=== PATIENT | female | born 1960 | race Caucasian/White ===

== ENCOUNTER 2019-12-12 21:26 | Emergency (ER) | payer BC, SELFPAY ==
--- NOTE | 2019-12-12 21:35 | CTR_ITS ---
PROCEDURE INFORMATION: Exam: CT Abdomen And Pelvis Without Contrast Exam date and time: 12/12/2019 10:23 PM Age: 59 years old Clinical indication: Abdominal pain; Flank; Right; Additional info: Flank pain TECHNIQUE: Imaging protocol: Computed tomography of the abdomen and pelvis without contrast. Total DLP: 1790.71 mGy-cm Radiation optimization: All CT scans at this facility use at least one of these dose optimization techniques: automated exposure control; mA and/or kV adjustment per patient size (includes targeted exams where dose is matched to clinical indication); or iterative reconstruction. COMPARISON: No relevant prior studies available. FINDINGS: Liver: Normal. No mass. Gallbladder and bile ducts: Cholelithiasis. Pancreas: Normal. No ductal dilation. Spleen: Normal. No splenomegaly. Adrenals: Left adrenal 17 mm low-density nodule likely reflecting a benign adenoma. Kidneys and ureters: Normal. No hydronephrosis. Stomach and bowel: Unremarkable. No obstruction. No mucosal thickening. Appendix: No evidence of appendicitis. Intraperitoneal space: Unremarkable. No free air. No significant fluid collection. Vasculature: Unremarkable. No abdominal aortic aneurysm. Lymph nodes: Unremarkable. No enlarged lymph nodes. Bladder: Unremarkable as visualized. Reproductive: Unremarkable as visualized. Bones/joints: Unremarkable. No acute fracture. Soft tissues: Unremarkable. CT/CT kidney stone [id number] IMPRESSION: 1. Negative for acute inflammatory process. 2. Cholelithiasis. 3. Left adrenal 17 mm low-density nodule likely reflecting a benign adenoma. COMMENT: Consistent with the [employer]'s Incidental Findings Committee white paper (J Am González Radiol 2017): For any incidental adrenal lesion greater than 1.0 cm but less than 4.0 cm classified in this report as benign or likely benign (including classification as an adenoma or myelolipoma), no follow-up imaging is recommended per consensus recommendations based on imaging criteria. Further lab evaluation could be pursued if warranted based on clinical findings. Radiation Dose CTDIVOL = (mGy): DLP = 1790.71 (mGy-cm)
[2019-12-12 21:42] VITALS: BP 126/64; PULSE 78; RESP 17; TEMP 37.1; O2SAT 100; BMI 37.5
--- NOTE | 2019-12-12 21:49 | W.ED.FEMALGU ---
HPI - Female Genitourinary General: Chief complaint: Urogenital-Female Stated complaint: BACK PAIN, R FLANK PAIN Time Seen by Provider: 12/12/19 21:40 History of Present Illness: HPI Narrative: Patient comes in today with complaints of right flank pain for the last 3 days. Patient states that she had turned and she felt a strain in her back but she is also been having some urinary difficulty with the pain. Patient appears well. Patient appears in moderate pain. Review of Systems General: Reports: 10 or more systems reviewed and unremarkable except in HPI and below : Reports: flank pain Musc: Reports: back pain PFSH ED PFSH: Statuses (acute, chronic, etc) shown below reflect problem list status as previously entered and may not be historically accurate Social History Smoking and tobacco status: current every day smoker Physical Exam Const: COMMON NORMALS: no apparent distress and oriented x3 GENERAL APPEARANCE: cooperative HENMT: COMMON NORMALS: normocephalic, external ears normal, EAC's normal, TM's normal bilaterally and external nose normal HEAD & SCALP: normal to inspection and normocephalic FACE & SINUS: normal facial exam NOSE: external nose normal GENERAL EAR: hearing not grossly impaired EXTERNAL EAR: Yes external ears normal EXTERNAL AUDITORY CANAL: EAC's normal TYMPANIC MEMBRANE: TM's normal bilaterally MOUTH: oral and palatal mucosa normal THROAT: posterior oropharynx normal Eye: COMMON NORMALS: PERRL and EOMs intact bilaterally PUPIL: Yes PERRL Neck/C-Spine: COMMON NORMALS: full ROM and no lymphadenopathy Lymph: LYMPHATIC: no lymphedema noted Chest: COMMONS NORMALS: inspection of chest normal and palpation of chest normal Resp: COMMON NORMALS: normal respiratory effort and clear to auscultation bilaterally AUSCULTATION: clear to auscultation bilaterally Cardio: COMMON NORMALS: regular rate and regular rhythm RATE: regular rate RHYTHM: regular rhythm GI: COMMON NORMALS: normal to inspection, nondistended, normoactive bowel sounds and non-tender : BLADDER/KIDNEY EXAM: Yes CVA tenderness Back/Pelvis: GENERAL BACK: Yes CVA tenderness CVA tenderness: right LUMBAR SPINE/LOWER BACK: Yes paraspinal muscle tenderness Lumbar paraspinal muscle tenderness: right Extremity: COMMON NORMALS: normal to inspection GENERAL: No edema Neuro: COMMON NORMALS: oriented x3, moves all extremities and no focal motor deficits Psych: COMMON NORMALS: mental status grossly normal and cooperative Skin: COMMON NORMALS: no rashes or lesions noted GENERAL SKIN EXAM: no rashes or lesions noted Course Vital Signs: Vital signs: Vital Signs Temperature 98.8 F 12/12/19 21:42 Pulse Rate 63 12/13/19 00:16 Respiratory Rate 16 12/13/19 00:16 Blood Pressure 113/66 12/13/19 00:16 Pulse Oximetry 98 12/13/19 00:16 MDM - Female MDM Narrative: Medical decision making narrative: Patient comes in today with right flank pain and urinary difficulty. On exam patient appears well. Patient had some right CVA tenderness. And some muscle tenderness to the right paraspinous muscles. Respirations were even lungs were clear to auscultation. Differential diagnosis include pyelonephritis, renal calculi, lumbar strain, facet arthropathy, intervertebral disc disease. Urine was positive for white blood cells and red blood cells. Remainder of the labs were nonsignificant. CT scan noted no renal stone or stranding suggesting pyelonephritis. Reviewed exam with patient with recommendations for further treatment and follow-up. Patient was medicated with antibiotics for infection and medication for pain. Patient did have improvement with pain. Lab Data: Labs: Lab Results 12/12/19 12/12/19 12/12/19 Range/Units 22:00 22:05 22:05 WBC 8.6 (4.0-10.0) 10^3/ uL RBC 4.97 (4.1-5.3) 10^6/u L Hgb 14.3 (11.5-15.3) g/dL Hct 45.5 (37.0-47.0) % MCV 91.5 (81-99) fL MCH 28.8 (28.0-34.0) pg MCHC 31.4 (30.0-36.0) g/dL RDW 14.1 (12.1-15.1) % Plt Count 147 (130-400) 10^3/c mm MPV 12.3 H (7.4-10.4) fL Neut % (Auto) 51.4 % Lymph % (Auto) 39.0 % [place] % (Auto) 7.1 % Eos % (Auto) 2.1 % Baso % (Auto) 0.2 % Neut # (Auto) 4.4 (1.8-7.7) 10^3/u L Lymph # (Auto) 3.4 (0.8-4.8) 10^3/u L [place] # (Auto) 0.6 (0.2-0.9) 10^3/u L Eos # (Auto) 0.2 (0.0-0.8) 10^3/u L Baso # (Auto) 0.0 (0.0-0.1) 10^3/u L Nucleated RBC % (a uto) 0 % Nucleated RBCs # 0.0 /100WBC Sodium 136 (136-145) mmol/L Potassium 4.1 (3.5-5.1) mmol/L Chloride 102 (98-107) mmol/L Carbon Dioxide 22 (22-29) mmol/L Anion Gap 16.1 (5-19) BUN 17 (8-23) mg/dL Creatinine 0.9 (0.5-0.9) mg/dL GFR Calculation 63.9 L (90-130) mL/min Glucose 158 H (74-106) mg/dL Calculated Osmolal ity 282 L (285-295) mOsm/k g Calcium 9.7 (8.5-10.5) mg/dL Urine Color Yellow (Yellow) Urine Appearance Cloudy (CLEAR) Urine pH 5 (5-7) Ur Specific Gravit y 1.020 (1.005-1.030) Urine Protein Trace (Negative) Urine Glucose (UA) Norm (Normal) Urine Ketones Negative (Negative) Urine Occult Blood 2+ H (Negative) Urine Nitrate Negative (Negative) Urine Bilirubin 1+ H (NEGATIVE) Urine Urobilinogen 1 H (Negative) mg/dL Ur Leukocyte Vandana ase 2+ H (Negative) Urine RBC 0-4 H (0-2) /hpf Urine WBC >100 H (0-5) /hpf Ur Squamous Epith Cells 5-10 H (0-5) Urine Bacteria 2+ H (NONE) Urine Mucus 1+ Discharge Plan Discharge Patient Disposition: Home, Self-Care Clinical Impression: Urinary tract infection Qualifiers: Urinary tract infection type: acute cystitis Hematuria presence: with hematuria Qualified Code(s): N30.01 - Acute cystitis with hematuria Low back pain Qualifiers: Chronicity: acute Back pain laterality: right Sciatica presence: without sciatica Qualified Code(s): M54.5 - Low back pain Condition: Stable Prescriptions: New cephalexin 500 mg capsule 500 mg PO BID 7 Days Qty: 14 RF: 0 naproxen 500 mg tablet 500 mg PO BID Qty: 20 RF: 0 tizanidine 4 mg tablet 4 mg PO Q8H PRN (Reason: muscle spasticity) Qty: 14 RF: 0 Discharge Orders: Discharge Order (Routine); Ordered 12/12/19 Ordered By: Genaro Velasquez Discharge Diet: Usual diet Discharge Activity: Resume usual activity Patient Instructions: Urinary Tract Infection in Women (ED) Activity Restrictions/Additional Instructions: Activity as tolerated Drink plenty of water Activity as tolerated Follow-up with primary care in three days Discharge Date/Time: 12/13/19 00:18 Coding Level of Care Code ED Folder Stitcher Operator for Michelle Garcia Exam Problem Focused
[2019-12-12 22:02] VITALS: BP 130/69; PULSE 81; RESP 16; O2SAT 98
[2019-12-12 22:13] LABS: Basophils % 0.2 %; Eosinophils # 0.2 10^3/uL (0.0-0.8); Eosinophils % 2.1 %; Hematocrit 45.5 % (37.0-47.0); Hemoglobin 14.3 g/dL (11.5-15.3); Lymphocytes # 3.4 10^3/uL (0.8-4.8); Mean Corpuscular HGB Conc 31.4 g/dL (30.0-36.0); Mean Corpuscular Hemoglobin 28.8 pg (28.0-34.0); Mean Corpuscular Volume 91.5 fL (81-99); Mean Platelet Volume 12.3 fL (7.4-10.4); Monocytes # 0.6 10^3/uL (0.2-0.9); Monocytes % 7.1 %; Neutrophils # 4.4 10^3/uL (1.8-7.7); Neutrophils % 51.4 %; Nucleated Red Blood Cells % 0 %; Platelet Count 147 10^3/cmm (130-400); Red Blood Count 4.97 10^6/uL (4.1-5.3); Red Cell Distribution Width 14.1 % (12.1-15.1); White Blood Count 8.6 10^3/uL (4.0-10.0)
[2019-12-12 22:16] VITALS: RESP 16; O2SAT 97
[2019-12-12] MEDS: morphine 4 mg/mL SDV 1 mL 2 MG IVP (22:16)
[2019-12-12] MEDS: ondansetron 2 mg/ML SDV 2 mL 4 MG IVP (22:17)
[2019-12-12] MEDS: ketorolac 30 mg/mL INJ 15 MG IVP (22:17)
[2019-12-12 22:24] VITALS: BP 116/66; PULSE 70; RESP 16; O2SAT 94
[2019-12-12 22:42] LABS: Anion Gap 16.1 (5-19); Blood Urea Nitrogen 17 mg/dL (8-23); Calcium 9.7 mg/dL (8.5-10.5); Carbon Dioxide 22 mmol/L (22-29); Chloride 102 mmol/L (98-107); Glomerular Filtration Rate 63.9 mL/min (90-130); Glucose 158 mg/dL (74-106); Osmolality Calculated 282 mOsm/kg (285-295); Potassium 4.1 mmol/L (3.5-5.1); Sodium 136 mmol/L (136-145)
[2019-12-12 22:49] LABS: Bilirubin Urine 1+ (NEGATIVE); Blood Urine 2+ (Negative); Leukocyte Esterase Urine 2+ (Negative); Protein Urine Trace (Negative); Urine Appearance Cloudy (CLEAR); Urine Color Yellow (Yellow); Urobilinogen Urine 1 mg/dL (Negative); pH Urine 5 (5-7)
[2019-12-12 22:50] LABS: Add Urine Culture? Yes; Bacteria Urine 2+; Glucose Urine UA Norm (Normal); Ketones Urine Negative (Negative); Mucus Urine 1+; Nitrate Urine Negative (Negative); RBC Urine 0-4 /hpf (0-2); WBC Urine >100 /hpf (0-5)
[2019-12-12] MEDS: cefTRIAXone 1,000 MG in sodium chloride 0.9% (plus) 50 ML 100 MG IV (23:40)
[2019-12-13 00:16] VITALS: BP 113/66; PULSE 63; RESP 16; O2SAT 98
== END 2019-12-13 00:18 | disposition home or self-care (01) ==
PROVIDERS: Emergency Provider Nurse Practitioner Family
DX: M54.5 Low back pain (principal); N30.01 Acute cystitis with hematuria; F17.210 Nicotine dependence, cigarettes, uncomplicated
CPT/HCPCS: 74176; 80048; 81001; 85025; 87086; 96365; 96374; 96375; 99282; 99283; J0696; J1885; J2270; J2405

== ENCOUNTER → 2020-10-29 14:07 | Outpatient (BNVA) | payer SELFPAY | PROVIDERS: Visit Provider Nurse Practitioner | DX: Z20.828 Contact with and (suspected) exposure to other viral communicable diseases (principal); U07.1 COVID-19 | CPT/HCPCS: 87635 ==

== ENCOUNTER 2022-01-07 14:28 | Emergency (ER) | payer SELFPAY ==
[2022-01-07 14:54] VITALS: BP 121/77; PULSE 71; RESP 16; TEMP 36.8; O2SAT 98; BMI 35.4
--- NOTE | 2022-01-07 15:15 | XRR_ITS ---
PROCEDURE INFORMATION: Exam: XR Chest Exam date and time: 01/07/2022 3:15 PM Age: 61 years old Clinical indication: Cough TECHNIQUE: Imaging protocol: XR of the chest. Views: 1 view. COMPARISON: CT kidney stone [id number] 12/12/2019 10:47 PM FINDINGS: Lungs: Unremarkable. No consolidation. Pleural spaces: Unremarkable. No pleural effusion. No pneumothorax. Heart/Mediastinum: Unremarkable. No cardiomegaly. Bones/joints: Unremarkable. XR/XR chest 1V portable [id number] IMPRESSION: No acute findings.
[2022-01-07 15:44] VITALS: BP 149/71; PULSE 69; RESP 16; O2SAT 94; O2SAT 95
--- NOTE | 2022-01-07 15:58 | ED_ITS ---
HPI - COVID General: Chief Complaint: COVID symptoms Stated Complaint: Cough, congestion, sob Time Seen by Provider: 01/07/22 15:40 Triage information: Has fever, cough or shortness of breath . No known COVID + exposure last 14 days History of Present Illness: Patient is a 61-year-old female comes to the ED with upper respiratory symptoms. For the past 2 weeks patient says she has had a cough, nasal and sinus congestion.She describes her cough is productive and early in the morning sputum is a yellowish color and it gets clear throughout the day. Patient had COVID-19 in late October 2021 and it went into early November 2021. Since recovering from Covid she has some residual shortness of breath symptoms with no acute change in shortness of breath. denies any chest pain, fevers, nausea/vomiting, sore throat, abdominal pain, bladder or bowel symptoms. COVID 19 common symptoms: positive productive cough; negative fever(s), chills, non-productive cough, dyspnea, fatigue, headache(s), throat pain, nasal congestion, nausea, vomiting or diarrhea COVID 19 other sytmptoms: negative chest pain COVID Results: Nasal/Oral Coronavirus 2019 PCR Not detected 10/29/20 14:07 10/29/20 Review of Systems Const: Denies: fever(s), chills or fatigue Eyes: Denies: change in vision or eye discomfort ENMT: Denies: throat pain, odynophagia, nasal discharge or nasal congestion Card: Denies: chest pain, palpitations, edema, swelling of feet/ankles, dyspnea on exertion or orthopnea Resp: Reports: productive cough; Denies: dyspnea or non-productive cough GI: Denies: abdominal pain, nausea, vomiting, diarrhea, constipation or hematochezia : Denies: flank pain, dysuria or hematuria Musc: Denies: neck pain, back pain or extremity swelling Skin/Breast: Denies: rash or new lesions Neuro: Denies: headache(s), numbness in extremities or weakness in extremities PFSH ED PFSH: Medical History No pertinent family history Surgical History No pertinent past surgical history Social History Smoking and tobacco status: current every day smoker Physical Exam Const: COMMON NORMALS: no acute distress, patient oriented x3 and alert GENERAL APPEARANCE: cooperative and comfortable HENMT: COMMON NORMALS: normocephalic HEAD & SCALP: normocephalic FACE & SINUS: no sinus tenderness TYMPANIC MEMBRANE: TM abnormal TM laterality: bilateral with fluid behind the TM MOUTH: Normal oral and palatal mucosa present THROAT: posterior oropharynx normal and uvula midline Neck/C-Spine: COMMON NORMALS: supple GENERAL: Yes normal visual inspection Resp: COMMON NORMALS: normal respiratory effort, No retractions, No use of accessory muscles and clear to auscultation bilaterally AUSCULTATION: clear to auscultation bilaterally Cardio: COMMON NORMALS: regular rate, regular rhythm, S1 normal heart sound present, S2 normal heart sound present, No gallops present (Cardio), No clicks present (Cardio), No murmurs present (Cardio) and Peripheral pulses 2+ throughout RATE: regular rate RHYTHM: regular rhythm HEART SOUNDS: S1 normal heart sound present and S2 normal heart sound present PERIPHERAL PULSES: Peripheral pulses 2+ throughout GI: COMMON NORMALS: Normal to inspection, nondistended, normoactive bowel sounds present, Soft to palpation, non-tender and no masses PALPATION: Yes Soft to palpation : COMMON NORMALS: Yes no CVA tenderness BLADDER/KIDNEY EXAM: Yes no CVA tenderness Back/Pelvis: COMMON NORMALS: no CVA tenderness Extremity: COMMON NORMALS: normal to inspection Neuro: COMMON NORMALS: patient oriented x3 and moves all extremities SENSORIUM/ORIENTATION: Yes alert Skin: GENERAL SKIN EXAM: dry skin Course Vital Signs: Vital signs: Vital Signs Temperature 98.2 F 01/07/22 14:54 Pulse Rate 65 01/07/22 16:02 Respiratory Rate 16 01/07/22 16:02 Blood Pressure 143/68 01/07/22 16:02 Pulse Oximetry 95 01/07/22 16:02 [facility] [place] - COVID Medical Decision Making Patient is a 61-year-old female comes to the ED with a productive cough for the past 2 weeks. Patient had COVID-19 approximately 2 months ago and has since fully recovered. Vitals are stable. Patient appears in no acute distress or pain. Exam is benign. CBC BMP unremarkable. Chest x-ray shows no acute fin dings. Influenza negative. Patient diagnosed with bronchitis and discharged home with a prescription for levofloxacin, Tessalon Perles, albuterol inhaler and prednisone. She was told to follow-up with her PCP 5 to 7 days for reevaluation. Return to ED precautions given. Patient understood and agreed with plan. Lab Data I reviewed the patient's lab results. : 01/07/22 16:00 01/07/22 16:00 Radiology Impressions Chest X-Ray 01/07/22 15:15 IMPRESSION: No acute findings. Laboratory Results WBC 9.0 10^3/uL (4.0-10.0) 01/07/22 16:00 RBC 5.20 10^6/uL (4.1-5.3) 01/07/22 16:00 Hgb 14.5 g/dL (11.5-15.3) 01/07/22 16:00 Hct 46.3 % (37.0-47.0) 01/07/22 16:00 MCV 89.0 fl (81-99) 01/07/22 16:00 MCH 27.9 pg (28.0-34.0) L 01/07/22 16:00 MCHC 31.3 g/dL (30.0-36.0) 01/07/22 16:00 RDW 13.5 % (12.1-15.1) 01/07/22 16:00 Plt Count 146 10^3/cmm (130-400) 01/07/22 16:00 MPV 11.8 fL (7.4-10.4) H 01/07/22 16:00 Neut % (Auto) 55.7 % 01/07/22 16:00 Lymph % (Auto) 34.8 % 01/07/22 16:00 [place] % (Auto) 6.6 % 01/07/22 16:00 Eos % (Auto) 2.3 % 01/07/22 16:00 Baso % (Auto) 0.3 % 01/07/22 16:00 Neut # (Auto) 4.98 10^3/uL (1.8-7.7) 01/07/22 16:00 Lymph # (Auto) 3.1 10^3/uL (0.8-4.8) 01/07/22 16:00 [place] # (Auto) 0.6 10^3/uL (0.2-0.9) 01/07/22 16:00 Eos # (Auto) 0.2 10^3/uL (0.0-0.8) 01/07/22 16:00 Baso # (Auto) 0.0 10^3/uL (0.0-0.1) 01/07/22 16:00 Nucleated RBC % (auto) 0 % 01/07/22 16:00 Nucleated RBCs # 0.0 /100WBC 01/07/22 16:00 Sodium 139 mmol/L (136-145) 01/07/22 16:00 Potassium 4.6 mmol/L (3.5-5.1) 01/07/22 16:00 Chloride 102 mmol/L (98-107) 01/07/22 16:00 Carbon Dioxide 25 mmol/L (22-29) 01/07/22 16:00 Anion Gap 16.6 (5-19) 01/07/22 16:00 BUN 15 mg/dL (8-23) 01/07/22 16:00 Creatinine 0.8 mg/dL (0.5-0.9) 01/07/22 16:00 GFR Calculation 72.7 mL/min (90-130) L 01/07/22 16:00 Glucose 106 mg/dL (65-115) 01/07/22 16:00 Calculated Osmolality 289 mOsm/kg (285-295) 01/07/22 16:00 Calcium 9.6 mg/dL (8.5-10.5) 01/07/22 16:00 Influenza Type A Ag Negative (Negative) 01/07/22 16:00 Influenza Type B Ag Negative (Negative) 01/07/22 16:00 Nasal/Oral Coronavirus 2019 PCR Not detected 10/29/20 14:07 10/29/20 Discharge Plan Discharge Patient Disposition: Home Clinical Impression: Bronchitis Condition: Stable Prescriptions: New benzonatate 100 mg capsule 100 mg PO QID PRN (Reason: cough) Qty: 20 0RF prednisone 5 mg tablets,dose pack See Rx Instructions .ROUTE .COMPLEX Qty: 21 0RF Rx Instructions: prednisone 5 mg: take 8 tablets (40 mg) on Day 1; 7 tablets (35 mg) on Day 2; then decrease by 1 tablet every day until finished levofloxacin 500 mg tablet 500 mg PO DAILY 10 Days Qty: 10 0RF albuterol sulfate 90 mcg/actuation HFA aerosol inhaler 2 inh inhalation Q6H PRN (Reason: shortness of breath or wheezing) Qty: 8.5 0RF No Action naproxen 500 mg tablet 500 mg PO BID Qty: 20 0RF Rx Instructions: for back pain tizanidine 4 mg tablet 4 mg PO Q8H PRN (Reason: muscle spasticity) Qty: 14 0RF Discharge Orders: Discharge ED (Routine); Ordered 01/07/22 Ordered By: Garcia Monique Discharge Diet: Regular Discharge Activity: Increase activity as tolerated Patient Instructions: Acute Bronchitis (ED) Activity Restrictions/Additional Instructions: Follow-up with medical provider as directed in 7-10 days for reevaluation. Take medications as prescribed. Return to the ER or your medical provider if condition worsens. Please read and understand discharge instructions. Thank you for choosing [facility] for your healthcare needs today. Please realize this is an emergency room and that we are providing you with a medical screening exam and this may not be complete and all inclusive of all the testing and or work up that you may need to determine your ailment or severity of your illness. It is very important that you follow up as instructed or that you return to the Emergency Department should you have concerns or if your condition changes or worsens in any way. Coding Level of Care Code ED Relief Man for Michelle Garcia Exam Comprehensive
[2022-01-07 16:02] VITALS: BP 143/68; PULSE 65; RESP 16; O2SAT 95
[2022-01-07 16:09] LABS: Basophils % 0.3 %; Eosinophils # 0.2 10^3/uL (0.0-0.8); Eosinophils % 2.3 %; Hematocrit 46.3 % (37.0-47.0); Hemoglobin 14.5 g/dL (11.5-15.3); Lymphocytes # 3.1 10^3/uL (0.8-4.8); Lymphocytes % 34.8 %; Mean Corpuscular HGB Conc 31.3 g/dL (30.0-36.0); Mean Corpuscular Hemoglobin 27.9 pg (28.0-34.0); Mean Platelet Volume 11.8 fL (7.4-10.4); Monocytes # 0.6 10^3/uL (0.2-0.9); Monocytes % 6.6 %; Neutrophils # 4.98 10^3/uL (1.8-7.7); Neutrophils % 55.7 %; Nucleated Red Blood Cells % 0 %; Platelet Count 146 10^3/cmm (130-400); Red Cell Distribution Width 13.5 % (12.1-15.1)
[2022-01-07 16:40] LABS: Influenza A by IFA Negative (Negative); Influenza B by IFA Negative (Negative)
[2022-01-07 16:55] LABS: Anion Gap 16.6 (5-19); Blood Urea Nitrogen 15 mg/dL (8-23); Calcium 9.6 mg/dL (8.5-10.5); Carbon Dioxide 25 mmol/L (22-29); Chloride 102 mmol/L (98-107); Glomerular Filtration Rate 72.7 mL/min (90-130); Glucose 106 mg/dL (65-115); Osmolality Calculated 289 mOsm/kg (285-295); Potassium 4.6 mmol/L (3.5-5.1); Sodium 139 mmol/L (136-145)
== END 2022-01-07 17:16 | disposition home or self-care (01) ==
PROVIDERS: Emergency Medicine; Emergency Provider Physician Assistant
DX: J40 Bronchitis, not specified as acute or chronic (principal); F17.210 Nicotine dependence, cigarettes, uncomplicated
CPT/HCPCS: 71045; 80048; 85025; 87804; 99283

== ENCOUNTER 2022-11-30 16:50 | Emergency (ER) | payer MEDICAID, SELFPAY ==
--- NOTE | 2022-11-30 17:01 | XRR_ITS ---
PROCEDURE INFORMATION: Exam: XR Chest Exam date and time: 11/30/2022 5:22 PM Age: 62 years old Clinical indication: Pain; Other: Across abd; Additional info: Sharp pain in upper abd for 2 weeks getting worse today, nausea TECHNIQUE: Imaging protocol: Radiologic exam of the chest. Views: 1 view. COMPARISON: CR (CHEST, ) 01/07/2022 4:01 PM FINDINGS: Lungs: Unremarkable. No consolidation. Pleural spaces: Unremarkable. No pleural effusion. No pneumothorax. Heart/Mediastinum: Unremarkable. No cardiomegaly. Bones/joints: Unremarkable. XR/XR chest 1V portable [id number] IMPRESSION: No acute findings.
[2022-11-30 17:15] VITALS: BP 139/72; PULSE 66; RESP 18; TEMP 36.6; O2SAT 98
[2022-11-30 18:08] LABS: Basophils % 0.1 %; Eosinophils # 0.1 10^3/uL (0.0-0.8); Eosinophils % 1.4 %; Hematocrit 46.4 % (37.0-47.0); Hemoglobin 14.3 g/dL (11.5-15.3); Lymphocytes % 20.1 %; Mean Corpuscular HGB Conc 30.8 g/dL (30.0-36.0); Mean Corpuscular Hemoglobin 27.3 pg (28.0-34.0); Mean Corpuscular Volume 88.7 fl (81-99); Monocytes # 0.4 10^3/uL (0.2-0.9); Monocytes % 4.3 %; Neutrophils % 73.9 %; Nucleated Red Blood Cells % 0 %; Platelet Count 128 10^3/cmm (130-400); Red Blood Count 5.23 10^6/uL (4.1-5.3); Red Cell Distribution Width 13.5 % (12.1-15.1); White Blood Count 9.9 10^3/uL (4.0-10.0)
[2022-11-30 18:25] LABS: Alanine Aminotransferase 26 U/L (0-33); Alkaline Phosphatase 59 U/L (35-105); Anion Gap 11.2 (5-19); Aspartate Amino Transferase 55 U/L (0-32); Blood Urea Nitrogen 15 mg/dL (8-23); Calcium 9.3 mg/dL (8.5-10.5); Carbon Dioxide 28 mmol/L (22-29); Chloride 103 mmol/L (98-107); Globulin 3.5 g/dL (1.3-4.6); Glomerular Filtration Rate 72.4 mL/min (90-130); Glucose 120 mg/dL (65-115); Osmolality Calculated 288 mOsm/kg (285-295); Potassium 4.2 mmol/L (3.5-5.1); Sodium 138 mmol/L (136-145); Total Bilirubin 0.3 mg/dL (0.15-1.2); Total Protein 7.5 g/dL (6.6-8.7)
--- NOTE | 2022-11-30 21:02 | ED_ITS ---
HPI - Abdominal Pain General: Chief Complaint: Abdominal Pain Stated Complaint: abnormal labs/chest pain Time Seen by Provider: 11/30/22 21:01 History of Present Illness: 62-year-old female comes in today with complaints of epigastric pain radiating to her back. Patient reports pain worse over the last 2 to 3 days. Patient appears nontoxic. Patient reports pain is improved and at this time she feels better. Patient had been seen in urgent care and was referred to the ER for concerns of the pain radiating into her chest. Patient appears nontoxic. Patient appears in mild to no pain at this time. Patient has had a Niesen procedure for esophagitis and reflux, patient does continue to have her gallbladder. Associated Symptoms: Reports nausea; Denies fever(s) Review of Systems Const: Denies: fever(s) GI: Reports: abdominal pain and nausea PFS ED PFSH: Medical History No pertinent family history Surgical History No pertinent past surgical history Social History Smoking and tobacco status: current every day smoker Physical Exam Const: COMMON NORMALS: alert HENMT: COMMON NORMALS: normocephalic HEAD & SCALP: normocephalic Neck/C-Spine: COMMON NORMALS: full ROM Resp: COMMON NORMALS: normal respiratory effort and clear to auscultation bilaterally AUSCULTATION: clear to auscultation bilaterally Cardio: COMMON NORMALS: regular rate and regular rhythm RATE: regular rate RHYTHM: regular rhythm GI: COMMON NORMALS: Soft to palpation AUSCULTATION: Yes normoactive bowel sounds PALPATION: Yes Soft to palpation and Yes Tenderness to palpation present (GI) Details: RUQ : COMMON NORMALS: Yes no CVA tenderness BLADDER/KIDNEY EXAM: Yes no CVA tenderness Back/Pelvis: COMMON NORMALS: no CVA tenderness Extremity: COMMON NORMALS: normal to inspection Neuro: SENSORIUM/ORIENTATION: Yes alert Skin: COMMON NORMALS: turgor normal GENERAL SKIN EXAM: turgor normal Course Vital Signs: Vital signs: Vital Signs Temperature 97.9 F 11/30/22 17:15 Pulse Rate 66 11/30/22 17:15 Respiratory Rate 18 11/30/22 17:15 Blood Pressure 139/72 11/30/22 17:15 Pulse Oximetry 98 11/30/22 17:15 Oxygen Delivery Me thod 11/30/22 17:15 MDM - Abdominal Pain Medical Decision Making 62-year-old female comes in today with some epigastric pain and right upper quadrant abdominal pain radiating to the back. On exam we note a soft abdomen with right upper quadrant abdominal pain, bowel sounds are present, vital signs are normal, patient appears no acute distress. Patient does have some xanthomas to the periorbital region. Differential diagnosis includes but not limited to cholecystitis, cholelithiasis, ACS, gastritis. Troponin was unremarkable. CBC showed no leukocytosis or other significant abnormality. CMP showed some mild elevation in AST and ALT. Lipase was normal. Ultrasound of the gallbladder noticed some small stones versus sludge. Recommend follow-up with surgeon for further evaluation and treatment. Case management was consulted for appointment assistance. Lab Data 11/30/22 17:44 11/30/22 17:44 Labs/Radiology: Radiology Impressions Chest X-Ray 11/30/22 17:01 IMPRESSION: No acute findings. Gallbladder Ultrasound 11/30/22 21:12 IMPRESSION: Questionable small gallstones. No sonographic evidence of acute cholecystitis. Laboratory Results WBC 9.9 10^3/uL (4.0-10.0) 11/30/22 17:44 RBC 5.23 10^6/uL (4.1-5.3) 11/30/22 17:44 Hgb 14.3 g/dL (11.5-15.3) 11/30/22 17:44 Hct 46.4 % (37.0-47.0) 11/30/22 17:44 MCV 88.7 fl (81-99) 11/30/22 17:44 MCH 27.3 pg (28.0-34.0) L 11/30/22 17:44 MCHC 30.8 g/dL (30.0-36.0) 11/30/22 17:44 RDW 13.5 % (12.1-15.1) 11/30/22 17:44 Plt Count 128 10^3/cmm (130-400) L 11/30/22 17:44 MPV 13.0 fL (7.4-10.4) H 11/30/22 17:44 Neut % (Auto) 73.9 % 11/30/22 17:44 Lymph % (Auto) 20.1 % 11/30/22 17:44 [place] % (Auto) 4.3 % 11/30/22 17:44 Eos % (Auto) 1.4 % 11/30/22 17:44 Baso % (Auto) 0.1 % 11/30/22 17:44 Neut # (Auto) 7.30 10^3/uL (1.8-7.7) 11/30/22 17:44 Lymph # (Auto) 2.0 10^3/uL (0.8-4.8) 11/30/22 17:44 [place] # (Auto) 0.4 10^3/uL (0.2-0.9) 11/30/22 17:44 Eos # (Auto) 0.1 10^3/uL (0.0-0.8) 11/30/22 17:44 Baso # (Auto) 0.0 10^3/uL (0.0-0.1) 11/30/22 17:44 Nucleated RBC % (auto) 0 % 11/30/22 17:44 Nucleated RBCs # 0.0 /100WBC 11/30/22 17:44 Sodium 138 mmol/L (136-145) 11/30/22 17:44 Potassium 4.2 mmol/L (3.5-5.1) 11/30/22 17:44 Chloride 103 mmol/L (98-107) 11/30/22 17:44 Carbon Dioxide 28 mmol/L (22-29) 11/30/22 17:44 Anion Gap 11.2 (5-19) 11/30/22 17:44 BUN 15 mg/dL (8-23) 11/30/22 17:44 Creatinine 0.8 mg/dL (0.5-0.9) 11/30/22 17:44 GFR Calculation 72.4 mL/min (90-130) L 11/30/22 17:44 Glucose 120 mg/dL (65-115) H 11/30/22 17:44 Calculated Osmolality 288 mOsm/kg (285-295) 11/30/22 17:44 Calcium 9.3 mg/dL (8.5-10.5) 11/30/22 17:44 Total Bilirubin 0.3 mg/dL (0.15-1.2) 11/30/22 17:44 AST 55 U/L (0-32) H 11/30/22 17:44 ALT 26 U/L (0-33) 11/30/22 17:44 Alkaline Phosphatase 59 U/L (35-105) 11/30/22 17:44 Troponin T Baseline 6 ng/L (0-10) 11/30/22 21:40 Total Protein 7.5 g/dL (6.6-8.7) 11/30/22 17:44 Albumin 4.0 g/dL (3.5-5.2) 11/30/22 17:44 Globulin 3.5 g/dL (1.3-4.6) 11/30/22 17:44 Discharge Plan Discharge Patient Disposition: Home Clinical Impression: Cholelithiasis Qualifiers: Cholelithiasis location: gallbladder Cholecystitis presence: without cholecystitis Biliary obstruction: without biliary obstruction Qualified Code(s): K80.20 - Calculus of gallbladder without cholecystitis without obstruction Condition: Stable Prescriptions: New dicyclomine 20 mg tablet 20 mg PO TID PRN (Reason: abdominal pain) Qty: 30 0RF Discharge Orders: Discharge ED (Routine); Ordered 11/30/22 Ordered By: Genaro Velasquez Discharge Diet: Advance as tolerated Discharge Activity: Increase activity as tolerated Patient Instructions: Gallstones (ED) Activity Restrictions/Additional Instructions: Use acetaminophen or dicyclomine for your pain. Avoid heavy fatty meals. Drink plenty of water and fluids. Case management will contact you regarding follow- up with surgeon for further evaluation and treatment. Return to ER for severe pain, high fever greater than 100.4, blood in vomit or stool, or new concerns. Coding Level of Care Code ED Canoe Builder for Chg Fwd Exam Comprehensive
--- NOTE | 2022-11-30 21:12 | USR_ITS ---
PROCEDURE INFORMATION: Exam: US Abdomen, Limited; Right Upper Quadrant Exam date and time: 11/30/2022 9:21 PM Age: 62 years old Clinical indication: Abdominal pain; Epigastric; Additional info: Ruq pain TECHNIQUE: Imaging protocol: Real time ultrasound of the abdomen with image documentation. Limited exam focused on the right upper quadrant. COMPARISON: CT kidney stone [id number] 12/12/2019 10:47 PM FINDINGS: Liver: Unremarkable. Gallbladder: Questionable small gallstones. No gallbladder wall thickening or pericholecystic fluid. Negative sonographic Whiteside's sign, as per the performing transportation sales consultant. Biliary ducts: Normal. No stones. No dilation. Pancreas: Unremarkable as visualized. Right kidney: No mass. No definite stones. No hydronephrosis. US/US gall bladder [id number] IMPRESSION: Questionable small gallstones. No sonographic evidence of acute cholecystitis.
[2022-11-30 22:00] LABS: Troponin(5th) Baseline 6 ng/L (0-10)
[2022-11-30 22:12] VITALS: BP 152/81; PULSE 70; RESP 17; O2SAT 98
[2022-11-30 22:33] LABS: Add Urine Microscopic? YES; Bilirubin Urine Neg (Negative); Blood Urine 2+ (Negative); Glucose Urine UA Norm (Normal); Ketones Urine Negative (Negative); Leukocyte Esterase Urine Negative (Negative); Nitrate Urine Negative (Negative); Protein Urine Neg (Negative); Urine Appearance Hazy (CLEAR); Urine Color Yellow (Yellow); Urobilinogen Urine Neg (Negative); pH Urine 5 (5-7)
[2022-11-30 22:40] LABS: Add Urine Culture? No; Bacteria Urine 2+ /hpf; Mucus Urine TRACE /hpf; RBC Urine 0-4 /hpf (0-2); Squamous Epithelial Cell Urine 55-80 /hpf (0-5)
--- NOTE | 2022-12-03 10:55 | DCPLANNER ---
Addendum entered by Kathleen Melendez 12/11/22 14:08: manager product received the following message from the general surgery front office regarding follow up appointment: Spoke to patient she will speak to FA and get back with us to schedule. Corin Julian completed item. On Patito 2:39p Dec 06, 2022 Corin Julian (Covering For: Awning [employer] Front [employer]) Wrote To: Awning Assembler Front Off Unbilled balance of 3000 will put patient over the 3000 vishnu. Patient will need to speak to FA prior to scheduling an appointment Original Note: manager product had message to schedule a follow up appointment for patient with general surgery. manager product sent patients information to the front office staff at general surgery. Patients information will be printed and reviewed. Clinic will call patient with appointment information.
== END 2022-11-30 22:15 | disposition home or self-care (01) ==
PROVIDERS: Emergency Medicine; Emergency Provider Nurse Practitioner Family
DX: K80.20 Calculus of gallbladder without cholecystitis without obstruction (principal); F17.210 Nicotine dependence, cigarettes, uncomplicated
CPT/HCPCS: 36415; 71045; 76705; 80053; 81001; 84484; 85025; 99285

== ENCOUNTER 2023-02-14 10:59 | Day surgery (SDC) | payer BC, MEDICAID, SELFPAY ==
[2023-02-13 17:23] VITALS: BMI 36.5
[2023-02-14] VITALS (7 sets, daily range): BP systolic 114–140; BP diastolic 70–80; PULSE 53–70; RESP 14–17; TEMP 36.1–36.7; O2SAT 92–99
--- NOTE | 2023-02-14 11:19 | W.PM.OPSUD ---
Surgery/Procedure H&P Update DATE OF PROCEDURE: February 14, 2023 DATE H&P PERFORMED: 01/23/23 H&P UPDATE INFORMATION: I have reviewed H&P completed within last 30 days, I have examined patient prior to procedure and No changes to prior documentation PREOP DIAGNOSIS: symptomatic cholelithiasis PLANNED PROCEDURE: Operation Date: 02/14/23 12:45 [place] [address] k80.20(Not Applicable) - Domingo Neff DO
[2023-02-14] MEDS: sodium chloride 0.9% 1,000 ML 30 ML IV (11:26)
--- NOTE | 2023-02-14 11:35 | ANES.PREANE2 ---
Pre-Anesthetic Assessment Height/Weight: Height 1.6 m Weight 93.44 kg Temp Pulse Resp BP Pulse Ox O2 Del Method 98.1 F 70 16 122/72 98 02/14/23 11:15 02/14/23 11:15 02/14/23 11:15 02/14/23 11:15 02/14/23 11:15 02/14/23 11:15 Preop Diagnosis: symptomatic cholelithiasis Operation Date: 02/14/23 12:45 [place] [address] k80.20(Not Applicable) - Domingo Neff DO Familial anesthetic complications: None Was Beta Regino taken within 24 hours: N/A Was Clonidine taken within 24 hours: N/A Last intake: Intake Last Liquid Date 02/13/23 Last Liquid Time 22:30 Last Solid Date 02/13/23 Last Solid Time 18:30 Social Tobacco and No alcohol Exam alert, oriented x 3, clear to auscultation bilaterally and regular rate & rhythm Airway Mallampati: Class III Dentition: other (no teeth) Pulmonary None reported CV/HEM None reported None reported Hepatic None reported GI None reported Metabolic Morbid Obesity Musc/skel None reported Neuropsych None reported Anesthetic Plan ASA status: 2 Anesthesia: General Risk of > 500 ml blood loss (7ml/kg in children): No Medications/Allergies Home Medications Medication Instructions Recorded Confirmed Last Taken Type No Known Home Medications 02/13/23 02/13/23 Unknown History Allergies Allergy/AdvReac Type Severity Reaction Status Date / Time erythromycin base Allergy ALGY-Rash Verified 02/13/23 17:21 tetracycline Allergy ALGY-Rash Verified 02/13/23 17:21 Current Medications Generic Name Dose Route Start Last Admin Trade Name Freq PRN Reason Stop Dose Admin Sodium Chloride 1,000 mls @ 30 mls/hr 02/14/23 11:15 02/14/23 11:26 Sodium Chloride 0.9% IV 02/15/23 11:14 30 mls/hr .Q24H DAISHA Administration PFSH Anesthesia Medical History (Updated 01/23/23 @ 15:39 by Domingo Neff DO) No pertinent family history Surgical History (Updated 01/23/23 @ 15:38 by Domingo Neff DO) History of Ilene fundoplication History of tubal ligation No pertinent past surgical history Social History Smoking and tobacco status: current every day smoker Data Anesthesia Cardiac Studies: No Data to Display
[2023-02-14] MEDS: ceFAZolin 2,000 MG in sodium chloride 0.9% (plus) 50 ML 100 MG IV (12:44)
[2023-02-14] MEDS: lidocaine-epi 2% 20 mL INJ INJECTION (13:04)
--- NOTE | 2023-02-14 13:26 | P.OP_ITS ---
Operative Report Date of procedure: February 14, 2023 Pre-op diagnosis: Preop Diagnosis symptomatic cholelithiasis Post-op diagnosis: same Procedure done: Laparoscopic cholecystectomy Implants: None Specimens removed/disposition: Gallbladder Surgeon: Dr. Domingo Neff DO Anesthesia: General Estimated blood loss (mL): 5 Complications: None apparent Brief History: This is a very pleasant 63-year-old female who presented to my office with symptomatic cholelithiasis. Laparoscopic cholecystectomy was indicated. Risks and benefits were explained and documented. Procedure: Patient was wheeled into the operative room and placed on the OR table in a supine position. Abdomen was inspected prepped and draped in usual sterile fashion. Time-out was performed and all present were in agreement. A 15 blade scalp was used to make a stab incision in the left upper quadrant and intra- abdominal insufflation was achieved using a Veress needle. After localizing the tissue incisions were made and a 5 millimeter trocar was placed into the umbilicus as well as 2 in the right upper quadrant. A 12 millimeter trocar was placed in the epigastrium. Gallbladder was grasped and elevated. The triangle of Calot was carefully dissected using blunt dissection and electrocautery until the triangle of Calot clearly identified. The cystic duct was clipped proximally and double clipped distally. The duct was then ligated proximally. The cystic artery was doubly clipped and ligated. The gallbladder was then removed from the liver bed using electrocautery. The gallbladder was removed from the abdomen using an Endo-Catch bag through the epigastric incision. The liver bed was inspected and no bleeding was seen. The abdomen was irrigated and suctioned. All ports removed. Skin was washed and dried. Incisions were closed with 4-0 Monocryl in a subcuticular interrupted fashion. Skin glue was applied. Patient tolerated the procedure well.
[2023-02-14] MEDS: HYDROcodone-acetaminophen 5-325 mg Tablet 1 TAB PO (14:22)
[2023-02-14] MEDS: ondansetron 2 mg/ML SDV 2 mL 4 MG IVP (15:15)
--- NOTE | 2023-02-14 19:33 | ANE.PACU2 ---
Inpatient post-anesthesia follow up: Airway intact: Yes Vital signs: Temperature 98 F Pulse Rate 60 Respiratory Rate 17 Blood Pressure 140/80 Pulse Oximetry 96 Oxygen Delivery Me thod Room Air Oxygen Flow Rate 6 Fraction of Inspir ed Oxygen Hydration adequate: Yes Nausea and vomiting: No Pain level: 1 Mental status: Baseline
== END 2023-02-14 15:45 | disposition home or self-care (01) ==
PROVIDERS: Visit Provider Surgery
PROC: 0FT44ZZ Resection of Gallbladder, Percutaneous Endoscopic Approach (ICD-10-PCS; CPT 47562; principal; 2023-02-14 12:35)
DX: K80.10 Calculus of gallbladder with chronic cholecystitis without obstruction (principal); E66.01 Morbid (severe) obesity due to excess calories; Z68.36 Body mass index [BMI] 36.0-36.9, adult; F17.200 Nicotine dependence, unspecified, uncomplicated
CPT/HCPCS: 47562; 88304; J0690; J1100; J1885; J2250; J2405; J2704; J2710; J3010; J3490; J7030

== ENCOUNTER → 2023-10-11 10:00 | Outpatient (BNVA) | payer BC, MEDICAID, SELFPAY | PROVIDERS: PCP Family Medicine; Visit Provider Family Medicine | DX: Z13.6 Encounter for screening for cardiovascular disorders (principal); F41.9 Anxiety disorder, unspecified; F32.A Depression, unspecified | CPT/HCPCS: 80053; 80061; 84443; 85025 ==

== ENCOUNTER → 2025-05-31 10:33 | Outpatient (BNVA) | payer MEDICARE, SELFPAY | PROVIDERS: PCP Family Medicine; Visit Provider Family Medicine | DX: Z13.6 Encounter for screening for cardiovascular disorders (principal) | CPT/HCPCS: 80053; 80061; 85025 ==

== ENCOUNTER → 2025-06-01 10:25 | Outpatient (BNVA) | payer MEDICARE, SELFPAY | PROVIDERS: PCP Family Medicine; Visit Provider Family Medicine | DX: D69.6 Thrombocytopenia, unspecified (principal) | CPT/HCPCS: 80503 ==

== ENCOUNTER 2025-06-08 08:05 | Outpatient (CLI) | payer MEDICARE, BC, SELFPAY ==
--- NOTE | 2025-06-08 08:15 | CT_ITS ---
WS: [id number] LDCT LUNG CANCER SCREENING TECHNIQUE: Noncontrast CT of the chest with coronal and sagittal reformatted images. CLINICAL INFORMATION: screening COMPARISON: None. DLP: 74.92 mGy.cm DIvol: Mean CTDIvol: 1.70 (mGy) All CT scans at [facility] use at least one of these dose optimization techniques: automated exposure control; mA and/or kV adjustment per patient size (includes targeted exams where dose is matched to clinical indication); or iterative reconstruction. FINDINGS: Calcified granuloma RIGHT lower lobe. Subsegmental atelectasis in the RIGHT middle lobe. Small LEFT perifissural nodules noncalcified nodule RIGHT lower lobe measuring 3 mm. Several small noncalcified nodules LEFT lower lobe. Bronchiectasis with a few patchy tree-in-bud opacities in the RIGHT greater than LEFT upper lobes likely inflammatory. Aortic calcification. Normal caliber thoracic aorta. No mediastinal or hilar lymphadenopathy. No axillary lymphadenopathy. Small esophageal hiatal hernia. LEFT adrenal adenoma measuring 1.3 cm cholecystectomy clips. RIGHT adrenal gland is normal. Splenic granulomas. Splenic artery calcification. CT/CT lung screening [id number] IMPRESSION: LUNG-RADS: 2-Benign Appearance or Behavior FOLLOW UP: 12 Month: Continue annual screening with LDCT
[2025-06-08 10:09] LABS: LAB Peripheral Smear Sent for Review
== END 2025-06-08 08:06 | disposition home or self-care (01) ==
LOC: RAD 08:09
PROVIDERS: PCP Family Medicine; Visit Provider Family Medicine
DX: F17.219 Nicotine dependence, cigarettes, with unspecified nicotine-induced disorders (principal); D69.6 Thrombocytopenia, unspecified; Z12.2 Encounter for screening for malignant neoplasm of respiratory organs; F17.210 Nicotine dependence, cigarettes, uncomplicated; J98.11 Atelectasis; R91.8 Other nonspecific abnormal finding of lung field; K44.9 Diaphragmatic hernia without obstruction or gangrene; D35.02 Benign neoplasm of left adrenal gland; Z98.890 Other specified postprocedural states
CPT/HCPCS: 36415; 71271; 80503; 86803; 87389

== ENCOUNTER 2025-06-23 08:47 | Oncology outpatient (recurring) (ONCR) | payer MEDICARE, SELFPAY ==
[2025-06-23 10:11] LABS: Hematocrit 43.1 % (36-47); Hemoglobin 14.10 g/dL (11.27-16.99); Mean Corpuscular HGB Conc 32.7 g/dL (30-55); Mean Corpuscular Hemoglobin 28.2 pg (27-33); Mean Corpuscular Volume 86.2 fl (85-98); Nucleated Red Blood Cells % 0 %; Platelet Count 112 10^3/cmm (157-399); Red Blood Count 5.00 10^6/uL (3.85-5.65); White Blood Count 6.81 10^3/uL (3.29-11.43)
[2025-06-23 10:36] LABS: Alanine Aminotransferase 9 U/L (0-33); Albumin Level 4.0 g/dL (3.5-5.2); Alkaline Phosphatase 52 U/L (35-105); Anion Gap 15.4 (5-19); Aspartate Amino Transferase 14 U/L (0-32); Blood Urea Nitrogen 16 mg/dL (8-23); Calcium 8.9 mg/dL (8.5-10.5); Carbon Dioxide 22 mmol/L (22-29); Chloride 107 mmol/L (98-107); Creatinine Clr Calc Pharmacy 73.3650; Globulin 3.0 g/dL (1.3-4.6); Glucose 134 mg/dL (65-115); Osmolality Calculated 293 mOsm/kg (285-295); Potassium 4.4 mmol/L (3.5-5.1); Sodium 140 mmol/L (136-145); Total Protein 7.0 g/dL (6.6-8.7); Uric Acid 4.5 mg/dL (2.4-5.7)
== END 2025-07-11 23:59 | disposition home or self-care (01) ==
PROVIDERS: PCP Family Medicine; Visit Provider Internal Medicine
DX: D69.6 Thrombocytopenia, unspecified (principal); F17.210 Nicotine dependence, cigarettes, uncomplicated; M16.12 Unilateral primary osteoarthritis, left hip
CPT/HCPCS: 36415; 80053; 83615; 84550; 85025; 85651; 99204

== ENCOUNTER 2025-07-21 10:27 | Oncology outpatient (recurring) (ONCR) | payer MEDICARE, SELFPAY ==
--- NOTE | 2025-07-16 09:30 | US_ITS ---
WS: [id number] Complete ABDOMINAL ULTRASOUND HISTORY: thrombocytopenia COMPARISON: 12/12/2019 CT Liver: 13.9 cm in length. Normal size liver and echogenicity. No bile duct dilatation or mass. Portal Vein: Normal hepatopetal flow with monophasic waveform. Gallbladder: Prior cholecystectomy. CBD: 0.3 cm Pancreas: Poorly visualized. Right kidney: 9.4 cm x 3.8 x 4.2 cm. Cortex:1.2 cm. Normal size kidney with mild cortical atrophy. No obstruction or mass. Left kidney: 11.7 cm x 4.8 cm x 5.4 cm. Cortex: 1.0 cm. Normal size kidney with mild cortical atrophy. No obstruction or mass. Spleen: 9.6 cm. Normal size and echogenicity. Aorta and IVC: Unremarkable abdominal aorta and IVC. US/US abdomen complete* [id number] Impression: 1. Normal sized spleen, 9.6 cm in length. 2. Prior cholecystectomy. 3. Mild cortical atrophy. No renal obstruction.
== END 2025-08-10 23:59 | disposition home or self-care (01) ==
PROVIDERS: PCP Family Medicine; Visit Provider Internal Medicine
DX: D69.6 Thrombocytopenia, unspecified (principal); F17.200 Nicotine dependence, unspecified, uncomplicated
CPT/HCPCS: 76700; 99213